=== PATIENT | female | born 1955 | race Caucasian/White ===

== ENCOUNTER 2021-02-03 22:54 | Observation (INO) | payer OTHER ==
--- OUTSIDE RECORDS SUMMARY | 2021-02-03 22:58 | XMS REPORT | Continuity of Care Document ---
:1955 Author Organization [facility] t Address [address] [place] [address] Care Team Providers Name Role Phone MEHUL Primary Care Physician Unavailable SYSTEM, NOT IN Attending Clinician Unavailable Dontae Goel MD Attending Clinician DONTAE GOEL Attending Clinician Unavailable MEHUL Attending Clinician Unavailable Mehul VALDOVINOS Attending Clinician Black GORDILLO Attending Clinician JUDY Attending Clinician Unavailable Judy VALDOVINOS Attending Clinician Alden Moore MD Attending Clinician Suzi REYNOSO Attending Clinician Unavailable Denise TOLEDO Attending Clinician DENISE Attending Clinician Unavailable Fabian Enriquez MA Attending Clinician Piyush TOLEDO Attending Clinician Danial VALDOVINOS Attending Clinician DANIAL Attending Clinician Unavailable Kamran PAULINO Attending Clinician Alden MOORE Attending Clinician Unavailable Angel Fernandez Attending Clinician Unavailable Lab, Fam Pob I Attending Clinician Unavailable Payers Payer Name Policy Type Policy Effective Date Expiration Date Sour ce Number AETNA MEDICAREAETNA [id number] 2019 MD Regan MEDICARE 00:00:00 [id number]/ 2020-PresentMedicar e Problems Condition Condition Condition Status Onset Resolution Last Treating Co mments Source Name Details Category Date Date Treatment Clinician Date Severe Severe Disease Active protein-ca protein-ca 5-03 Danii viear whit sherman 00:00: n malnutriti malnutriti 00 on on Lung mass Lung mass Disease Active 4-06 Anderso 00:00: n 00 Acute deep Acute deep Disease Resolve 2021-01-18 2021-01-19 venous venous d 01-18 00:00:00 00:47:20 Alexis o thrombosis thrombosis 00:00: n of of 00 axillary axillary vein vein Allergies, Adverse Reactions, Alerts This patient has no known allergies or adverse reactions. Social History Social Habit Start Date Stop Date Quantity Comments Source History of tobacco Current every day MD Regan use smoker Sex Assigned At MD Espinoza on Exposure to Not sure MD Regan SARS-CoV-2 (event) Cigarettes smoked 2021-01-28 2021-01-28 MD Shakeel schwab current (pack per 00:00:00 00:00:00 day) - Reported Cigarette pack-years 2021-01-28 2021-01-28 MD Leigh lopez 00:00:00 00:00:00 Tobacco use and 2021-01-28 2021-01-28 Never used MD Espinoza on exposure 00:00:00 00:00:00 Alcohol intake 2021-01-28 2021-01-28 Current drinker MD Danii apple 00:00:00 00:00:00 of alcohol (finding) Tobacco Comment 2021-01-13 2021-01-13 In the past month MD Regan 00:00:00 00:00:00 she has been smoking 10 cpd Alcohol Comment 2021-01-13 2021-01-13 very rarely- once MD Regan 00:00:00 00:00:00 every few years Smoking Status Start Date Stop Date Source Current every day smoker 2021-01-28 00:00:00 MD Regan Medications Ordered Filled Start Stop Current Ordering Indication Dosage Frequency Signature Comments Components Source Medication Medication Date Date Medication? Clinician (SIG) Name Name NICORETTE 2 Yes Tobacco 2mg Chew and MD mg gum 01-17 dependence park 1 Robert so cinnamon 00:00: syndrome Piece (2 n surge 00 mg) by mouth every hour as needed for smoking cessation. nicotine, Yes Tobacco 2mg Dissolve 1 MD polacrilex, 4-26 dependence lozenge (2 Anderso (Nicorette) 00:00: syndrome mg) in the n 2 mg mini 00 mouth lozenge every hour as needed for smoking cessation. apixaban Yes Deep venous Take 2 MD (Eliquis 3-22 thrombosis tablets by Andgosia DVT-PE 00:00: mouth n Treat 30D 00 twice Start) 5 mg daily for (74 tabs) 7 days, tablet then take 1 tablet by mouth twice daily thereafter . HYDROcodone Yes 1{tbl} Take 1 MD -acetaminop 3-09 tablet by And gosia gallegos (NORCO) 00:00: mouth n 7.5 mg-325 00 every 6 mg per (six) tablet hours as needed for pain. rOPINIRole Yes 1mg Take 1 mg MD (REQUIP) 1 3-09 by mouth Robert so mg tablet 00:00: at n 00 bedtime. hydrOXYchlo Yes 200mg Take 200 M D roQUINE 2-22 mg by Anderso (PLAQUENIL) 00:00: mouth n 200 mg 00 twice tablet daily. amLODIPine Yes 2.5mg Take 2.5 MD (NORVASC) 1-12 mg by Anderso 2.5 mg 00:00: mouth n tablet 00 daily. Immunizations Ordered Immunization Filled Immunization Date Status Commen ts Source Name Name [employer] SARS-CoV-2 2020-10-27 Completed MD Shakeel schwab Vaccination 00:00:00 Vital Signs Vital Name Observation Time Observation Value Comments Source WEIGHT 2021-01-18 14:21:00 59.9 kg WEIGHT 2021-01-18 14:21:00 59.9 kg WEIGHT 2021-01-05 09:16:00 60.2 kg WEIGHT 2021-01-05 09:16:00 60.2 kg HEIGHT 2020-12-13 14:22:00 175.3 cm WEIGHT 2020-12-13 14:22:00 62.7 kg HEIGHT 2020-12-13 14:22:00 175.3 cm WEIGHT 2020-12-13 14:22:00 62.7 kg Systolic blood pressure 2021-01-18 19:24:58 144 mm[Hg] MD Regan Diastolic blood pressure 2021-01-18 19:24:58 74 mm[Hg] MD Regan Heart rate 2021-01-18 19:24:58 91 /min MD Robert barlow Body temperature 2021-01-18 19:24:58 36.72 Ashley MD Leigh lopez Respiratory rate 2021-01-18 19:24:58 18 /min MD Leigh lopez Oxygen saturation in 2021-01-18 19:24:58 95 /min MD Regan Arterial blood by Pulse oximetry Body weight 2021-01-18 19:21:00 59.9 kg MD Robert barlow BMI 2021-01-18 19:21:00 20.48 kg/m2 MD Robert barlow Body height 2020-12-30 12:37:00 171 cm MD Robert barlow Procedures Procedure Date / Time Performed Performing Clinician Sourc e AP IHC PD-L1 2021-01-10 15:19:38 Maria Ines Walker MD AP FISH ALK 2021-01-10 15:19:38 Maria Ines Walker MD AP FISH CMET 2021-01-10 15:19:38 Maria Ines Walker MD AP FISH RET 2021-01-10 15:19:38 Maria Ines Walker MD AP FISH ROS1 2021-01-10 15:19:38 Maria Ines Walker MD HP CYTOGENETICS BLOOD 2021-01-06 22:43:00 Maria Ines Walker MD And erson COLLECTION US HEAD NECK SOFT TISSUE 2021-01-06 20:17:30 Maria Ines Walker MD US BIOPSY LYMPH NODE 2021-01-06 20:17:30 Maria Ines Walker MD Shakeel rson US GUIDED NEEDLE PLACEMENT 2021-01-06 20:17:30 Maria Ines Walker PATHOLOGY BIOPSY 2021-01-06 18:44:00 Maria Ines Walker MD INTERPRETATION PATHOLOGY BIOPSY 2021-01-06 18:42:00 Maria Ines Walker MD INTERPRETATION LB BRAF MUTATION ANALYSIS 2021-01-05 16:20:00 Maria Ines Walker MD (V600E/V600K) WITH INTERPRETATION AND REPORT LB EGFR SENSITIZING MUTATION 2021-01-05 16:20:00 Maria Ines Walker MD ANALYSIS WITH INTERPRETATION AND REPORT LB EGFR MUTATION ANALYSIS 2021-01-05 16:20:00 Maria Ines Walker MD (T790M, C797S) WITH INTERPRETATION AND REPORT LB EML4/ALK FUSION ANALYSIS 2021-01-05 16:20:00 Maria Ines Walker MD WITH INTERPRETATION AND REPORT LB ERBB2 FULL GENE MUTATION 2021-01-05 16:20:00 Maria Ines Walker MD ANALYSIS WITH INTERPRETATION AND REPORT LB MET FULL GENE MUTATION 2021-01-05 16:20:00 Maria Ines Walker MD ANALYSIS WITH INTERPRETATION AND REPORT LB RET FUSION ANALYSIS WITH 2021-01-05 16:20:00 Maria Ines Walker MD INTERPRETATION AND REPORT LB ROS1 FUSION ANALYSIS WITH 2021-01-05 16:20:00 Maria Ines Walker MD INTERPRETATION AND REPORT LB LIQUID BIOPSY PANEL V1 2021-01-05 16:20:00 Maria Ines Walker MD FINAL REPORT MRI BRAIN W WO CONTRAST 2020-12-30 15:21:00 Maria Ines Walker MD PETCT CONTRAST ENHANCED 2020-12-30 14:19:33 Maria Ines Walker MD INITIAL TREATMENT STRATEGY COMPLETE BLOOD COUNT W/ 2020-12-30 11:52:00 Maria Ines Walker MD DIFFERENTIAL COMPREHENSIVE METABOLIC PANEL 2020-12-30 11:52:00 Maria Ines Walker MD THYROID STIMULATING HORMONE 2020-12-30 11:52:00 Maria Ines Walker MD FREE THYROXINE 2020-12-30 11:52:00 Maria Ines Walker MD LIPASE LEVEL 2020-12-30 11:52:00 Maria Ines Walker MD AMYLASE LEVEL 2020-12-30 11:52:00 Maria Ines Walker MD MAGNESIUM LEVEL 2020-12-30 11:52:00 Maria Ines Walker MD PHOSPHORUS LEVEL 2020-12-30 11:52:00 Maria Ines Walker MD MD NGS BLOOD CONTROL 2020-12-30 11:52:00 Maria Ines Walker MD rson Results CBC 2020-12-30 11:52:00 Maria Ines Walker MD MANUAL DIFFERENTIAL 2020-12-30 11:52:00 Maria Ines Walker MD GLUCOSE LEVEL 2020-12-30 11:52:00 Maria Ines Walker MD BLOOD UREA NITROGEN 2020-12-30 11:52:00 Maria Ines Walker MD ELECTROLYTE PANEL 2020-12-30 11:52:00 Maria Ines Walker MD Alexiso n SERUM CREATININE 2020-12-30 11:52:00 Maria Ines Walker MD .GLOMERULAR FILTRATION RATE 2020-12-30 11:52:00 Maria Ines Walker MD CALCIUM LEVEL TOTAL 2020-12-30 11:52:00 Maria Ines Walker MD son ALBUMIN LEVEL 2020-12-30 11:52:00 Maria Ines Walker MD ALKALINE PHOSPHATASE 2020-12-30 11:52:00 Maria Ines Walkere rson ALANINE AMINOTRANSFERASE 2020-12-30 11:52:00 Maria Ines Walker MD ASPARTATE AMINOTRANSFERASE 2020-12-30 11:52:00 Maria Ines Walker TOTAL PROTEIN 2020-12-30 11:52:00 Maria Ines Walker MD FRACTIONATED BILIRUBIN 2020-12-30 11:52:00 Maria Ines Walker MD derson CT CHEST PULMONARY EMBOLISM W 2020-12-13 21:43:00 Jessica Barrow MD CONTRAST US ARM VENOUS DOPPLER LEFT 2020-12-13 20:12:45 Ravi Barrow RESPIRATORY VIRAL PANEL + 2020-12-13 20:05:00 Louise Willingham MD COVID-19, NASOPHARYNGEAL SWAB COMPLETE BLOOD COUNT W/ 2020-12-13 20:05:00 Ravi Barrow MD nderson DIFFERENTIAL COMPREHENSIVE METABOLIC PANEL 2020-12-13 20:05:00 Jessica Barrow MD MAGNESIUM LEVEL 2020-12-13 20:05:00 Ravi Barrow MD PHOSPHORUS LEVEL 2020-12-13 20:05:00 Ravi Barrow MD CARDIAC PANEL 2020-12-13 20:05:00 Ravi Barrow MD NT PRO BNP 2020-12-13 20:05:00 Ravi Barrow MD PROTHROMBIN TIME 2020-12-13 20:05:00 Ravi Barrow MD PARTIAL THROMBOPLASTIN TIME 2020-12-13 20:05:00 Ravi Barrow MD Results CBC 2020-12-13 20:05:00 Ravi Barrow MD MANUAL DIFFERENTIAL 2020-12-13 20:05:00 Ravi Barrow MD GLUCOSE LEVEL 2020-12-13 20:05:00 Ravi Barrow MD BLOOD UREA NITROGEN 2020-12-13 20:05:00 Ravi Barrow MD ELECTROLYTE PANEL 2020-12-13 20:05:00 Ravi Barrow MD SERUM CREATININE 2020-12-13 20:05:00 Ravi Barrow MD .GLOMERULAR FILTRATION RATE 2020-12-13 20:05:00 Ravi Barrow MD CALCIUM LEVEL TOTAL 2020-12-13 20:05:00 Ravi Barrow MD ALBUMIN LEVEL 2020-12-13 20:05:00 Ravi Barrow MD ALKALINE PHOSPHATASE 2020-12-13 20:05:00 Ravi Barrow MD ALANINE AMINOTRANSFERASE 2020-12-13 20:05:00 Ravi Barrow MD ASPARTATE AMINOTRANSFERASE 2020-12-13 20:05:00 Ravi Barrow TOTAL PROTEIN 2020-12-13 20:05:00 Ravi Barrow MD FRACTIONATED BILIRUBIN 2020-12-13 20:05:00 Ravi Barrow MD EKG, 12-LEAD (PORTABLE) 2020-12-13 00:00:00 Ravi Barrow MD nderson OSI CT CHEST 2020-11-30 22:36:23 Ravi Barrow MD OSI CERVICAL SPINE 2020-11-16 22:36:35 Ravi Barrow MD on OSI MRI SPINE CERVICAL 2020-11-16 22:36:11 Ravi Barrow MD OSI MRI UPPER EXT 2020-11-16 22:36:01 Ravi Barrow MD OSI SHOULDER 2020-11-16 22:35:52 Ravi Barrow MD Plan of Care Planned Activity Planned Date Details Comments Source Future Scheduled Test 2020-11-17 00:00:00 COVID-19 Vaccination (2 MD Regan - Pfizer 2-dose series) [code = COVID-19 Vaccination (2 - Pfizer 2-dose series)] Encounters Start End Encounter Admission Attending Care Care Encounter Source Date/Time Date/Time Type Type Clinicians Facility Department ID 2020-12-10 Outpatient ENRIQUE, MDA MDA [id number] 11:08:07 PROVIDER Alexis holland 2021-02-01 2021-02-01 Outpatient OLI GOEL MDA MDA [id number] 17:26:00 17:26:00 NAT holland 2021-01-28 2021-01-28 Outpatient JANETTE SANTIZO MDA MDA [id number] 13:28:59 13:28:59 Alexis o skyler 2021-01-24 2021-01-24 Outpatient JANETTE SANTIZO MDA MDA [id number] 11:30:49 15:04:41 Alexis o skyler 2021-01-21 2021-01-21 Outpatient JANETTE SANTIZO MDA MDA [id number] 11:12:41 11:12:41 Alexis o skyler 2021-01-18 2021-01-18 Outpatient NELY HOBSON MDA MDA [id number] 14:20:33 15:53:49 Alexis o skyler 2021-01-13 2021-01-13 Outpatient OLI REYNOSO, MDA MDA [id number] 12:08:47 12:08:47 CARMENCITA holland 2021-01-13 2021-01-13 Outpatient JANETTE SANTIZO MDA MDA [id number] 12:08:39 12:08:39 Alexis o skyler 2021-01-06 2021-01-06 Outpatient OLI WALKER, MDA MDA [id number] 12:33:42 12:33:42 MARIA INES Espinoza o skyler 2021-01-05 2021-01-05 Outpatient OLI WALKER, MDA MDA [id number] 10:45:00 23:59:00 MARIA INES Espinoza o skyler 2021-01-05 2021-01-05 Outpatient JANETTE SANTIZO MDA MDA [id number] 09:06:20 10:58:21 Alexis o skyler 2020-12-30 2020-12-30 Outpatient OLI WALKER, MDA MDA [id number] 06:54:53 06:54:53 MARIA INES Espinoza o skyler 2020-12-30 2020-12-30 Outpatient EL DENISE, MDA MDA [id number] 06:54:10 06:54:10 MARIA INES Zhuers o n 2020-12-30 2020-12-30 Outpatient OLI WALKER MDA MDA [id number] 06:40:10 06:45:26 MARIA INES Zhuers o n 2020-12-24 2020-12-24 Outpatient NELY HOBSON MDA MDA [id number] 14:58:40 14:58:46 Alexis o n 2020-12-20 2020-12-20 Outpatient OLI BARROW, MDA MDA [id number] MD 14:41:21 14:41:21 RAVI Alexis o n 2020-12-20 2020-12-20 Outpatient OLI BARROW MDA MDA [id number] MD 14:41:20 14:41:20 RAVI Alexis o n 2020-12-20 2020-12-20 Outpatient OLI BARROW MDA MDA [id number] MD 14:41:18 14:41:18 RAVI Alexis o n 2020-12-20 2020-12-20 Outpatient OLI BARROW MDA MDA [id number] MD 14:41:17 14:41:17 RAVI Alexis o n 2020-12-20 2020-12-20 Outpatient OLI BARROW MDA MDA [id number] 14:41:16 14:41:16 RAVI Alexis o n 2020-12-13 2020-12-13 Emergency UR MOORE, MDA Emergency [id number] 14:24:00 20:03:00 AUGUSTINE Espinoza o n 2020-11-26 2020-11-26 Laboratory Lab, Adc [facility] [id number] 11:19:36 11:39:36 Only [facility] [id number] [place] [id number] Professio [id number] nal 044 Office Building One Results Test Description Test Time Test Comments Results Result Comments Source Cytogenetics Specimen Collection -FFPE 2021-02-01 22:45:31 Test Item Value Reference Range Interpretation Comme nts Beckie Faulkner Link (test code = 59744) [id number] Collection date/time has been modified to: SANDIP 17:43:00. Previous collec tion date/time: 17:43 :00. Cytogenetics (Received) (test code = Yes Collection date/time has been 8304) modified to: 17:43:00. Previous colle tion date/time: 17:43 :00. MD ReganPathology Biopsy [id number] 13:29:00 Test Item Value Reference Range Interpretation Comments Addendum 1 (test code = h4csuZDtLEUieMG4WcM 37) jMYWea9wnc5HbuFNajB YdUFhpqITrdjOijd46d TU9uA40EJ2iIZUzQeX4 FXXeatH9Iur4KEUfUFJ ilJAmA589r9wao2fgju YfbJQ6zCjcIPKcOLQtC WluXGJcZnMyMCBUaGlz IGFkZGVuZHVtIGlzIGN dNLF7OAZxaE0vxiCec5 V2NZWjWWs8bN2lRXakq Q6zcU8oyUllgK9dwQHh aWNhbCBzdHVkaWVzLlx wYXJccGFyZFxiMFxwYX OuES5zwM9ecFxwfA8bk GVtaWNhbCBhbmFseXNp acPfh8AzVGLcUIUpXJq nYNInv95gTUOtDnXmAB Jmt95puVWjTTLzhZ64r yZkUG8zfyVum0JiJUR2 IDqqhC4mJWouHFDhTIb cYRNaYXQ6aF0zkyPsPF minmIgaqW7sJiaEEBjE WNpbWVuLiAgXHBhclxw YXJkXHBhclxwYXIgQVc aWL3gkVIuNJVmGFktAw AyMVxwYXJccHJvdGVjd JwuZicbhPW9URubIfdr cS1phLPFCWTXRaqIFew htmBkDP9DJS1ZCkHMDN 92HNI5OGoVL3r7OCh6a HF0gV82EFAeNVZmdYVe QNepV088FWr7BpBHNHv mPoywmVM2XFajKvhvyB 5zdCBIWVBFUkxJTksgb fHiTH6FEG0SCR9FfOhx xYX1St6LeUS5rOenhNl 0n4lhlBKoy8t3KCpyBM X3tJfvjCBaaorpyeNdA HBhcn0= Diagnosis (test code = 34) h1sipBJpNQAnnJV2JgV bNLTci8flu2NvmCMnpW EkGRiykALscePjwx91b XO9lW98FQ6uVMBaYlG2 DHHwxyJ3Urs3LNFvVFU iaRKkO260j3isy0ktwz TjrMX2dIxbNMAvIGRmG WluXGZzMjAgQTogTGVm dCBpbmZlcmlvciBuZWN pYS8uOPPuWLUzYJL4II KcKMM0IJQeTJRobDq1D TEejapfaDxcBAzihR40 MeRuTI9OQtjJHDBQItO FUkVOVElBVEVEIENBUk FXEw2TOBMRWoBTPEYSS 6KKDGOTB9UNYFbeSkIM U9LzCUWFAPDJMCFHNmK DDw8ZIXzSWlbmWGLYED FIWKFbr2LtJRIoyZ9tw nQpXHBhclxsaTBcbGlu MFxwYXIgQjogUmlnaHQ sq6FoztKhpWZ1gVP3yZ VuQC0xWUWpYFNjJDQ0R QQiUQF9JYNqSLIczWe5 XHBhclxsaTcyMFxsaW4 2DkPmQY7DSjuTOEYJVc ZFUkVOVElBVEVEIENBU nUFBz2EXZCFPaJXTBML TVIyYN6POZMPTcPMKHB jUVgRA4XRZSGPQRGPDs UCWUIYQ6RMP9aKPHUHJ 00gTFVORyBQUklNQVJZ CYhjWADvA94hrDIbcJd ccGFyXHBhcmRccGFyIG pul9qlBIF3 Comment (test code = 9835) h8afqNAfYQOgkNU3TbK fSITid7dnu0LgvOCcaJ QlGEaaxLUaqdHjbe91x GB7kL74PQ4wUQMsRkR1 SORtsfZ9Cyz6DOTsLQL dkIPqF821v4liq0xjpi ZubXF5rTeiNLGqJIUfG CkkZCMzRgNsQmtmaY3f lM6ctSkeoW3okBSkjOO 6okrnyNHzh6TkK7IofU VaILOdRNVaCtP5x6Vuw DJxl3DbzOa6IBIvh4Sm ZFMVPAApYO8fJUPdw5P vv8U3DE6gHOPucIpgIQ DfCDAto5KndIb8BGVyn 2VgVNUsObAZqI5gftQe ZWxscyBhcmUgbmVnYXR bhiZwHe1yKASDZPczLR 63FXKdtRwdfAndGO7ld oIhn9aeA4imUGPwKDSw tN82uj6dsRV1r0SbKV4 tU8ViARSvKWG2guGrFS Kaja8rNSNilm6fHWIzV WxsIGNlbGwgIGNhcmNp ln0vNASrTxPmhT6eGM5 viCbqzyrdtvHeqB4lui DxzRvlTFdfjDKuKDi9r mcgbWFzcyBpcyBwcmVz MN83RpEAo607lA09EGC dU9bqvxdrVFqpUS1kMH MqYAwviS3elJDdE69tl vWlQZQea90qAXgaDFTa cXVpcmVkLlxwYXJ9 Gross Description (test o5disIBcCVOixGUGLCM code = [id number]) wMVxhbnNpXHNwbHRwZ3 QwqidiRGitCS7aWD7mk UnywOPugGKoHL0KFABl ZmYxXHBhcGVydzEyMjQ rCDWikORwvVL3ZPZvKL 1hcmdsMTgwMFxtYXJnc mY2JHGswZCgB9FyBAMv RF6lugypQHB8AJsxfY7 qiyFPXlehMa9ddHGdyW tcZjFcZmNoYXJzZXQwX TAnbSsyDGWbHUt1wF7C BydhNGC1EVYSGzfbXPR sWO8Ay6whQEXcyGXxRS B7JFgkxGWyOFUsYHKzD Bd8YOWoXDhpyDShEI9d nTreVguzfRfzj9DswGX cXGlkIDUxMDAyIFxcZG QiPG9VWyGsIPQsFdKvA NclGBf0WEy4QC3GQjZl GIXpVJp7TKDhJRLySQs 6QPguEO4JCEiiBvgdTH XnUYE7IJR4PoRdOKFkQ iBcXGYgQXJpYWwgXFxm cyAxMCBcXGZiIFxcZmw gOZksZ13olZydhA3bSt ybuwObILT9TGHqlcYKP lxwbGFpblxlcGljTmVz dERvYzEgDQpcbHRycGF yXGxpbjBccmluMCANCl xsdHJjaFxiXGZzMjAgT NkwaOyoto7tRIfiMVgm bGVmdCBpbmZlcmlvciw gbmVjaywgbGVmdCBpbm UzredyvwKbLIIfHY7vT IPaVZVmICS7GJYwVMF2 IDEuNSBjbTpcYjAgLCB BpQg6kMIzJIvwAbWdQ8 3ufpClJAKfa1QrmlFfL iBjeWxpbmRyaWNhbCB3 vRx5CC94GX7irEuxf8T wIRlsLwTpKM46WCBcKN lsBXuptdu6gWH6JENmJ SBjbSBpbiBkaWFtZXRl nmkzEXWnkPmrSXv1QQL 8Js1jhRAdWASwcfQRDA 2oWShXKKqvjXmwcU8hL HDtT95qg6EOt5AbWXMf YLiiy4ghnAcub8PzgIE uZFxwYXJccGFyZFxzbC 0bNbYse0usqDc3JOkpm vC5CIFiop3EIqkoPljv mZcbt4HddZXjEShvVSE bCLFcQKteNZKwRK2RHi QwZZNtVuZkQSnvPId0L Sw7CL2LWsLpEHIaRQa8 GCLkZzExYBj4DOpsLF3 OGGobHctbHMo8VTQ2QG A3DlHxTDWuMwBkDFNmR XJpYWwgXFxmcyAxMCBc AKZrSPjqQfpoVLetO81 tLoegnbFtGUL8OYCwqm ANClxwbGFpblxlcGljT mVzdERvYzEgDQpcbHRy cGFyXGxpbjBccmluMCA NClxsdHJjaFxiXGZzMj DqILesgYiesw6gNFnsC DpimtbftONsOGX0mZVg I1sgeyoefXymoqrjzlp gpAKsb9YfiySjlKC2lJ O4cNSlWN5aXAHpCWMuZ KA9MXHwHHG0FZAtWNPp zUP4ZYYaQRZqUNEmmmP bOV2fWOY5pNpfGRQqD9 SiAKjtlGAgOLQkluN4r XNzdWUgKDAuMSBhbmQg LQ86XZRqBCyzPLpnixc 2jAE2HAHyYWDnsTHisb BkaWFtZXRlciksIGVud ErmWZg4ZOX8Dh9lyJIp HNEscpRADN1mXWsZWGf kuVruyT0oMCFfK40qz8 YGc4MqZDVwJRvqu6bta Xxes5FokVPaYEndRSSs yJBoLXmdmR4ePuMab7v djRn3NCerwlA2CSOttb 1DEcrfkJ7hBzFjh5pns Hs6NHQAJqgwynZ9f5xc iSchx6RbgKGrQG7MYo4 = [employer](s) (test h2bozICqWFQmtJQ5DqA code = 9841) fKLThc8otz5ZrwPEulL NtQCvjdYTfjcNwcw15u XU3pY06ZK4zADQpByP5 VCHmgzK0Azd1IXZlJNY iwQMeG413k6alq1etdh AgeCD9eVqnDBFsRCChT ToiONAxDhHiYTVcj4Y4 IEExXHBhcn0= Disclaimer (test code = e1mdyLFuAIDgeAKtPlP 9844) sWPSgEOAne0wvUWOyrY FuZzEwMzNcZnRuYmpcd WFhYWYqAjKzi8laz341 mXXqd4kiGIUaQrD5tND tSTEizHZxQ205HWFzKD ady9gsw0NuXERjjYQoa 0N9NDVEcafjqIu9iXib G00zd7O9KvssL2qcBJN hKLHyK9GwOT7jETTvSe j1DTE2PYA1PGYpQBZbS 3WvHB2cETSjjRSvOPm9 b2zqoEmuHVTxKIW0x3a iJZiobeKfCA9jet2xzW r5r7kvetOcYECrBGMmv YKPRTEeJ2UbcIflLq3h kCx7sTidZgxaKED0Njb 0WQ7szw77ezo5zWhlNL JkiwfgVjQ7CTlkSZJvi ibqICk7GYdnROSivIV5 RAVszVSuM6XhWGCgWP8 xjzw5ZIK5DScrPNObGz B4HAAiaJDwXGSwyUdaD Oyam518USN9IlUmGS6n I8Rkj2I4hH7weAXrSPG wbDZcYkJgDCDwic0rdL PfFVjui3CbAEK6pvI6t VAfqILnKNGhNK19Chlr j0DgSiomGGP1SMLzhnD ya4Ujv6stIdUmcfUfD7 bwW4YjSNFvNWFnSVWrM rXnimSjl3Ukf1ZiaCBd oGd7s0nyCFUgDQSvyRn wh8coJSZ3MXFwU7Z8zZ Xfx9frEPjgSCMwaQX8i sR6SFDqyAOsI5TsoQ2p DYKlRJ2zqaj1v5onMLV 5ZKsoEQJpYjC1fuK5DH BcaGVhZGVyeTcyMFxmb 021AFD7ZqPuPLHzm1Xe Z0BmaJxcV60pySnlM73 qLEMogFzzvA6eoBxymE 5cZjBcZnMyNFxxbFxwb EBoedcmOTmeesJ1JMcb hemoHRKjWBskA0uoKjX wEAYwjQrdLQwan1JkFN HuVZYbWkbtxyR0ZSKNh 75jQMXnf4CbZLCxhG0h uHSkIJkxlpFjzPF2ZEy hdmUgYmVlbiBkZXZlbG 6xPCMeME5zXDQozaJlt s9wqaHhOXUqHDVbK9Ac cmlzdGljcyBkZXRlcm1 qzaHqCKJ4VOLFTN3KCE AaICRas44cRUSepGwuu C9kmXWwheFiZNFbf9Ne gC0hyQNRKBZzE2kcVI3 gWFzvn5EguFLbyIDrzY B3WAVbx4DwBhMkztTmn YJmmXRhF5CfeRajJ0fb AXIxMMJqtaLuyFDxo1N vLSWqjTK6ePCdOA2SGg WCz47dQDPpWIWEepVzF BSxyXxfxSC6xjC2rF4j LiBJZiBhcHBsaWNhYmx bGZUyl533xy8zunP1OJ YaTZNhfsebd5RkOGXdS XGyvC31VYNcTWVugb9b vazhnOYhocFtR2Koxdb 1aH8oCDCjSOcdOIPaAU ZzMjJcbGFuZzEwMzNca GljaFxmMVxkYmNoXGYx VWumS7myLhOiIoFdUdo wYXJ9 MD [facility] Guided Needle [id number] 21:00:07 1. Successful ultrasound guided core needle biopsy of a right supraclavicular lymph node.2. Successful ultrasound guided core needle biopsy of a left supraclavicular lymph node. Interface, RadiologyResults In - 01/06/2021 4:02 PM CDTFULL RESULT:Examination: ULTRASOUND SOFT TISSUE HEAD&NECK, ULTRASOUND SOFT TISSUE HEAD&NECK, ULTRASOUND SOFT TISSUE HEAD&NECK, ULTRASOUND SOFT TISSUE HEAD &NECK on 01/06/2021 2:30 PMClinical History: Lung cancer.Indication: Lung cancer bilateral neck masses. Tissue needed for molecular testing.Comparison: PET/CT 12/30/20.Technique: Ultrasound soft tissues of the head and neck were performed. Ultrasound-guided core needle biopsy of a right lymph node was performed. Ultrasound-guided core needle biopsy of a left lymph node was also performed.Findings: Within the right neck, there are multiple metastatic lymph nodes identified. A right inferior neck node measuring up to 3.4 x 3.0 x 2.0 cm was targeted for core needle biopsy.In the left neck, there are abnormal lymph nodes, in keeping with metastasis. The left supraclavicular lymph node measuring up to2.5 x 1.5 x 1.5 cm was targeted for ultrasound-guided core needle biopsy.Ultrasound-guided core needle biopsy:Risks and benefits of procedure were explained to patient. Informed consent was obtained. The right neck was cleansed with alcohol. 1% Xylocaine was used for local anesthesia. Ultrasound guided core needle biopsy of the right inferior neck node was performed using a 20-gauge needle under sonographic guidance. 2 passes were made.Ultrasound guided core needle biopsy of the left inferior neck node was performed using a 20-gauge needle under sonographic guidance. 3 passes were made.IMPRESSION:1. Successful ultrasound guided core needle biopsy of a right supraclavicular lymph node.2. Successful ultrasound guided core needle biopsy of a left supraclavicular lymph node.MD [facility] HEAD NECK SOFT [id number] 21:00:07 1. Successful ultrasound guided core needle biopsy of a right supraclavicular lymph node.2. Successful ultrasound guided core needle biopsy of a left supraclavicular lymph node. Interface, RadiologyResults In - 01/06/2021 4:02 PM CDTFULL RESULT:Examination: ULTRASOUND SOFT TISSUE HEAD&NECK, ULTRASOUND SOFT TISSUE HEAD&NECK, ULTRASOUND SOFT TISSUE HEAD&NECK, ULTRASOUND SOFT TISSUE HEAD &NECK on 01/06/2021 2:30 PMClinical History: Lung cancer.Indication: Lung cancer bilateral neck masses. Tissue needed for molecular testing.Comparison: PET/CT 12/30/20.Technique: Ultrasound soft tissues of the head and neck were performed. Ultrasound-guided core needle biopsy of a right lymph node was performed. Ultrasound-guided core needle biopsy of a left lymph node was also performed.Findings: Within the right neck, there are multiple metastatic lymph nodes identified. A right inferior neck node measuring up to 3.4 x 3.0 x 2.0 cm was targeted for core needle biopsy.In the left neck, there are abnormal lymph nodes, in keeping with metastasis. The left supraclavicular lymph node measuring up to2.5 x 1.5 x 1.5 cm was targeted for ultrasound-guided core needle biopsy.Ultrasound-guided core needle biopsy:Risks and benefits of procedure were explained to patient. Informed consent was obtained. The right neck was cleansed with alcohol. 1% Xylocaine was used for local anesthesia. Ultrasound guided core needle biopsy of the right inferior neck node was performed using a 20-gauge needle under sonographic guidance. 2 passes were made.Ultrasound guided core needle biopsy of the left inferior neck node was performed using a 20-gauge needle under sonographic guidance. 3 passes were made.IMPRESSION:1. Successful ultrasound guided core needle biopsy of a right supraclavicular lymph node.2. Successful ultrasound guided core needle biopsy of a left supraclavicular lymph node.MD [facility] Guided Lymph Node [id number] 21:00:07 1. Successful ultrasound guided core needle biopsy of a right supraclavicular lymph node.2. Successful ultrasound guided core needle biopsy of a left supraclavicular lymph node. Interface, RadiologyResults In - 01/06/2021 4:02 PM CDTFULL RESULT:Examination: ULTRASOUND SOFT TISSUE HEAD&NECK, ULTRASOUND SOFT TISSUE HEAD&NECK, ULTRASOUND SOFT TISSUE HEAD&NECK, ULTRASOUND SOFT TISSUE HEAD &NECK on 01/06/2021 2:30 PMClinical History: Lung cancer.Indication: Lung cancer bilateral neck masses. Tissue needed for molecular testing.Comparison: PET/CT 12/30/20.Technique: Ultrasound soft tissues of the head and neck were performed. Ultrasound-guided core needle biopsy of a right lymph node was performed. Ultrasound-guided core needle biopsy of a left lymph node was also performed.Findings: Within the right neck, there are multiple metastatic lymph nodes identified. A right inferior neck node measuring up to 3.4 x 3.0 x 2.0 cm was targeted for core needle biopsy.In the left neck, there are abnormal lymph nodes, in keeping with metastasis. The left supraclavicular lymph node measuring up to2.5 x 1.5 x 1.5 cm was targeted for ultrasound-guided core needle biopsy.Ultrasound-guided core needle biopsy:Risks and benefits of procedure were explained to patient. Informed consent was obtained. The right neck was cleansed with alcohol. 1% Xylocaine was used for local anesthesia. Ultrasound guided core needle biopsy of the right inferior neck node was performed using a 20-gauge needle under sonographic guidance. 2 passes were made.Ultrasound guided core needle biopsy of the left inferior neck node was performed using a 20-gauge needle under sonographic guidance. 3 passes were made.IMPRESSION:1. Successful ultrasound guided core needle biopsy of a right supraclavicular lymph node.2. Successful ultrasound guided core needle biopsy of a left supraclavicular lymph node.MD Dalton ROS1 Fusion Analysis with Interpretation and Report - Liquid Biopsy genotyping when no tumor tissue is [id number] 19:06:24 Test Item Value Reference Range Interpretation Comments Molecular Diagnostics (Received) (test Yes code = 8400) MD Dalton RET Fusion Analysis with Interpretation and Report - Liquid Biopsy genotyping when no tumor tissue is [id number] 19:06:23 Test Item Value Reference Range Interpretation Comments Molecular Diagnostics (Received) (test Yes code = 8400) MD Dalton MET Mutation Analysis with Interpretation and Report - Liquid Biopsy genotyping when no tumor tissue is [id number] 19:06:22 Test Item Value Reference Range Interpretation Comments Molecular Diagnostics (Received) (test Yes code = 8400) MD Dalton ERBB2 Full Gene Mutation Analysis with Interpretation and Report - Liquid Biopsy genotyping when no tumor tissue is [id number] 19:06:21 Test Item Value Reference Range Interpretation Comments Molecular Diagnostics (Received) (test Yes code = 8400) MD Dalton EML4/ALK Fusion Analysis with Interpretation and Report - Liquid Biopsy genotyping when no tumor tissue is [id number] 19:06:20 Test Item Value Reference Range Interpretation Comments Molecular Diagnostics (Received) (test Yes code = 8400) MD Dalton EGFR Mutation Analysis (T790M, C797S) with Interpretation and Report - Clinical suspicion for treatment [id number] 19:06:19 Test Item Value Reference Range Interpretation Comments Molecular Diagnostics (Received) (test Yes code = 8400) MD Dalton EGFR Sensitizing Mutation Analysis with Interpretation and Report - Liquid Biopsy genotyping whenno tumor tissue is [id number] 19:06:18 Test Item Value Reference Range Interpretation Comments Molecular Diagnostics (Received) (test Yes code = 8400) MD Dalton BRAF Mutation Analysis with Interpretation and Report - Liquid Biopsy genotyping when no tumor tissue is [id number] 19:06:17 Test Item Value Reference Range Interpretation Comments Molecular Diagnostics (Received) (test Yes code = 8400) MD ReganPETCNona Contrast Enhanced Initial Treatment [id number] 16:26:47 1. Hypermetabolic primary lung cancer in the left upper lobe with extensive metastatic disease involving the bilateral lower cervical, supraclavicular, mediastinal, hilar and axillary lymph nodes. 2. F-18 FDG avid paraesophageal, bozena hepatis and left gastric lymph nodes are suspicious for metastases. 3. Mildly F-18 FDG avid subsolid right apical pulmonary nodule may represent a second primary lungcancer. I personally reviewed these image(s) along with the resident's/fellow's interpretations, certify that if a procedure was performed I was physically present, and agree with the final report.Interface, Radiology Results In - 12/30/2020 11:29 AM CDTFULL RESULT:Examination: Contrast-Enhanced F-18 FDG PET/CT, 12/30/2020 9:19 AMClinical History: Recently diagnosed left upper lobe lung cancer.Indication: Initial staging for initial treatment plan.Comparison: CT chest 12/13/2020Technique: F-18 fluorodeoxyglucose (FDG) 11.3 mCi was administered intravenously via right forearm. To allow for distribution and uptake of radiotracer, the patient was asked to rest quietly for approximately 60-90 minutes. PET/CT imaging was performed from the vertex to midthighs. Serum blood glucose at the time of the injection was 71 mg/dL. CT scanning was done for attenuation correction, image registration, and diagnosis with scan parameters optimized to minimize radiation exposure to the patient. The CT portion ofthe examination was performed with intravenous contrast. SUV measurements are reported as maximum SUV based on body weight unless otherwise specified. Findings: Head and Neck: No definite suspicious F-18 FDG avid lesion within the brain parenchyma. The paranasal sinuses are well aerated.There is multifocal hypermetabolic bilateral lower cervical and supraclavicular lymphadenopathy, consistent with metastatic disease. A financial services sales representative left level 5 cervical lymph node measures 1.5 cm has a maximum SUV8.5 (image 68). A financial services sales representative right level 5 lymph node has a maximum SUV 5.9 (image 72). A conglomerate of hypermetabolic left supraclavicular lymph nodes measures approximately 2.3 x 2.2 cm with a maximum SUV 8.8 (image 75). A conglomerate of right supraclavicular lymph nodes measures approximately 2.9 x 2.9 cm with a maximum SUV 9.3 (image 78).Stable small filling defect in the left brachiocephal ic vein with irregular narrowing at the confluence of the left internal jugular vein and subclavian veins, unchanged from CT of 12/13/2020.Chest: Hypermetabolic mass with central cavitation in the left apex measures approximately 3.3 x 3.6 cm with maximum SUV 5.8 (image 92), not significantly changed from the chest CT of 12/13/2020. This mass is consistent with patient's known primary lung cancer. There is additional spiculated subsolid pulmonary nodule in the right apex measures approximately 1.6 x 1.1 cm with low-level F-18 FDG activity maximum SUV 1.4 (image 86). This may represent a small pulmonary adenocarcinoma. An additional 8 mm nodule in the right lung apex does not demonstrate significant F -18 FDG activity. Attention on follow-up imaging is recommended.There is multifocal mediastinal and bilateral hilar lymphadenopathy consistent with metastatic disease. [employer] conglomerate of subcarinal lymph nodes measures approximately 2.2 x 3.7 cm with maximum SUV 9.7 (image #118). A financial services sales representative conglomeration of right hilar lymph nodes measures approximately 5.1 x 2.9 cm with maximum SUV 13.8 (image #118). A left hilar lymph node measures 1.7 x 1.7 cm with a maximum SUV 9.3 (image 120).Bilateral F-18 FDG avid axillary lymphadenopathy consistent with metastatic disease. A financial services sales representative left axillary lymph node measures 0.8 cm short axis maximum SUV 3.0 (image 98). A financial services sales representative right axillary lymph node measures 0.8 cm short axis with a maximum SUV 2.4 (image 110).Bilateral breast implants. Small pericardial effusion. A trace right pleural effusion is noted.Abdomen and Pelvis: Po stsurgical changes in the stomach and gastroesophageal junction from prior surgery. There are hypermetabolic paraesophageal, left gastric and bozena hepatis lymph nodes suspicious for metastatic disease. A paraesophageal lymph node measures 2.3 cm in short axis with a maximum SUV of 7.8 (image 146). A bozena hepatis lymph node has a maximum SUV of 5.3 (161).No F-18 FDG avid lesions in the liver, spleen, pancreas, adrenal glands, or kidneys. Left renal cortical cyst. Physiologic activity within the gastrointestinal tract.Indeterminant mildly hypermetabolic bilateral inguinal lymph nodes. A financial services sales representative left inguinal lymph node has maximum SUV 3.4 (image 2:30).Musculoskeletal: No F-18 FDG avid osseous lesions.IMPRESSION:1. Hypermetabolic primary lung cancer in the left upper lobe with extensive metastatic disease involving the bilateral lower cervical, supraclavicular, mediastinal, hilar and axillary lymph nodes. 2. F-18 FDG avid paraesophageal, bozena hepatis and left gastric lymph nodes are susp icious for metastases.3. Mildly F-18 FDG avid subsolid right apical pulmonary nodule may represent asecond primary lung cancer.I personally reviewed these image(s) along with the resident's/fellow's interpretations, certify that if a procedure was performed I was physically present, and agree with the final report.[facility] with and without [id number] 15:27:20No evidence for intracranial metastases or acute intracranial pathology. Interface, Radiology Results In 12/30/2020 10:29 AM CDTFULL RESULT:EXAMINATION: MRI BRAIN W WO CONTRAST on 12/30/2020 10:21 AMHISTORY: Lung massINDICATION: Initial staging, rule out brain metsCOMPARISON: NoneTECHNIQUE: Multi-sequence MRI of the brain without and with intravenous contrast as per standard departmental protocol.FIND INGS:The ventricles are normal in size and within the midline. No restricted diffusion or foci of C6mnuljeiqpqtfad. No abnormal leptomeningeal or parenchymal enhancement. Intracranial vascular flow voids are maintained. The paranasal sinuses are clear. No suspicious osseous or orbital lesions.IMPRESSION:No evidence for intracranial metastases or acute intracranial pathology.MD Regan OSI Cervical [id number] 21:36:44Study acquired at another institution. For comparison only. No MD Regan originated interpretationrequested or available. MD Gallo CT [id number] 21:36:31Study acquired at another institution. For comparison only. No MD Regna originated interpretationrequested or available.MD Gallo MRI SPINE [id number] 21:36:19Study acquired at another institution. For comparison only. No MD Regan originated interpretationrequested or available.MD Gallo MRI Upper [id number] 21:36:07Study acquired at another institution. For comparison only. No MD Regan originated interpretationrequested or available.MD Gallo Shoulder 2020-12-20 21:35:57Study acquired at another institution. For comparison only. No MD Regan originated interpretationrequested or available.MD ReganCT Chest Pulmonary Embolism with [id number] 22:09:001. No pulmonary emboli. 2. New left axillary/subclavian thrombophlebitis with thrombus extending into the brachiocephalic vein. There is resulting edema in the left chest wall. The enlarged nodes in the low right axilla are probably secondary to venous obstruction. 3. Extensive bilateral mediastinal adenopathy and bilateral lower cervical adenopathy presumably representing tumor involvement. Thereis mass effect on the heart and right pulmonary artery and veins which may be reducing blood flow tothat side. 4. Cavitary left upper lobe mass concerning for primary lung cancer. Suspicious nodules are also seen at the right apex that could be synchronous tumor, metastases, or possibly infectious/inflammatory nodules. 5. Other small lung nodules are indeterminate. Interface, Radiology Results In - 12/13/2020 5:11 PM CDTFULL RESULT:Examination: CT CHEST PULMONARY EMBOLISM W CONTRAST, 12/13/2020 4:43 PMClinical History: Lung mass with new neck swelling.Indication: Pulmonary embolism is leading diagnosis, Chest pain/Shortness of BreathComparison: NoneTechnique: Spiral CT of the chest is performedusing intravenous contrast.Findings: Bilateral breast implants are present. There is of multilevel left axillary adenopathy with edema in the left axilla and chest wall. There is soft tissue thickeningaround the left subclavian/axillary vein, and there is a probable filling defect in the left brachiocephalic vein. There is irregular narrowing at the confluence of left internal jugular and subclavianveins. Bilateral lower cervical adenopathy, right greater than left. Small to borderline right axillary lymph nodes. Bilateral mediastinal and hilar adenopathy. There is some mass effect on the right pu lmonary artery and right pulmonary veins due to the adenopathy. The right-sided bronchi are not significantly narrowed. There is mass effect on the left atrium. Cardiac chamber sizes are otherwise normal. There is a small pericardial effusion. No evidence of right heart strain. No pulmonary arterial filling defects. There is a 3 to 3.5 cm lobulated spiculated cavitary mass with air bronchograms in the left upper lobe. A couple of spiculated nodules are present at the right apex with the larger about10 to 12 mm. The left hemidiaphragm is elevated posteriorly and there is associated atelectasis along the hemidiaphragm. Linear atelectasis in the right lower lobe there are scattered tiny nodules in the 1 to 3 mm range of size in both lungs. 6-8 mm nonsolid nodule in the right upper lobe. No pleural effusion. Splenic calcified granulomata. Renal cysts. Surgical clips at the stomach probably gastric d iversion procedure not completely imaged. Orthopedic hardware in the cervical spine. No destructive or suspicious bone lesions.An outside CT dated 11/30/2020 is obtained for comparison. The mediastinal and cervical adenopathy is similar on that examination but the soft tissue blurring around the left subclavian vein and the enlarged left axillary lymph nodes were not presentIMPRESSION:1. No pulmonary emboli.2. New left axillary/subclavian thrombophlebitis with thrombus extending into the brachiocephalic vein. There is resulting edema in the left chest wall. The enlarged nodes in the low right axilla are probably secondary to venous obstruction.3. Extensive bilateral mediastinal adenopathy and bilateral lower cervical adenopathy presumably representing tumor involvement. There is mass effect on the heart and right pulmonary artery and veins which may be reducing blood flow to that side.4. Cavitary left upper lobe mass concerning for primary lung cancer. Suspicious nodules are also seen at the right apex that could be synchronous tumor, metastases, or possibly infectious/inflammatory nodules.5. Other small lung nodules are indeterminate.MD ReganRespiratory Viral Panel + COVID-19, Nasopharyngeal [id number] 21:28:57 Test Item Value Reference Range Interpretation Comments Adenovirus (test code = Not Detected Not Detected 4748) Coronavirus 229E (test Not Detected Not Detected code = 5349) Coronavirus HKU1 (test Not Detected Not Detected code = 5350) Coronavirus NL63 (test Not Detected Not Detected code = 5351) Coronavirus OC43 (test Not Detected Not Detected code = 5352) COVID19 (SARS-CoV-2) Not Detected Not Detected (test code = 96479-4) Human Metapneumovirus Not Detected Not Detected (test code = 6401) Human Not Detected Not Detected Rhinovirus/Enterovirus (test code = 7212) Influenza A (test code Not Detected Not Detected = 5618) Influenza A H1 (test Not Detected Not Detected code = 5619) Influenza A H1 2009 Not Detected Not Detected (test code = 5620) Influenza A H3 (test Not Detected Not Detected code = 5621) Influenza B (test code Not Detected Not Detected = 5622) Parainfluenza 1 (test Not Detected Not Detected code = 6779) Parainfluenza 2 (test Not Detected Not Detected code = 6780) Parainfluenza 3 (test Not Detected Not Detected code = 6781) Parainfluenza 4 (test Not Detected Not Detected code = 6782) Respiratory Syncytial Not Detected Not Detected Virus (test code = 7157) Bordetella Not Detected Not Detected Parapertussis (test code = 13413) Bordetella pertussis Not Detected Not Detected (test code = 4854) Chlamydiophila Not Detected Not Detected pneumoniae (test code = 5139) Mycoplasma pneumoniae Not Detected Not Detected (test code = 6203) VANNESA (test code = VANNESA) The BioFire RP2.1 is a real-time, nested multiplexed polymerase chain reaction test designed to simultaneously identify nucleic acids from 22 different viruses and bacteria associated with respiratory tract infection, including SARS-CoV-2, from a single nasopharyngeal swab ([employer]) specimen. Specifically, the SARS-CoV-2 primers contained in the BioFire RP2.1 are designed to detect RNA from the SARS-CoV-2 in nasopharyngeal swabs in transport media from patients who are suspected of COVID-19 by their healthcare provider. Results must be interpreted within the context of all relevant clinical and laboratory findings and should not form the sole basis for a diagnosis or treatment decision. This assay has been approved by the FDA for use only under Emergency Use Authorization (EUA) in laboratories that have been CLIA-certified to perform moderate-complexity and high-complexity tests. The [facility] at [facility], CLIA Accreditation #[id number] and CAP Accreditation #[id number], verified the performance characteristics of this assay. [facility] performs the assay using the [employer] System. Internal controls are used to monitor all stages of the test process. MD ReganPartial Thromboplastin [id number] 20:52:32 Test Item Value Reference Range Interpretation Comments PTT (test code = 6773) 36.4 See_Comment H [Aut omated message] The system [employer] generated this result transmitted ref erence range: 24.2 - 3 6.0 second(s). The reference range was not used to int erpret this result as normal/abnormal . Lab Interpretation (test Abnormal code = 39105-1) MD ReganProthrombin Time with [id number] 20:52:31 Test Item Value Reference Range Interpretation Comments PT (test code = 6746) 14.6 See_Comment H [Auto mated message] The system [employer] generated this result transmitted ref erence range: 12.0 - 1 4.3 second(s). The reference range was not used to int erpret this result as normal/abnormal . INR (test code = 5973) 1.21 0.90-1.10 H Lab Interpretation (test Abnormal code = 43608-0) MD RegnaCardiac [id number] 20:45:15 Test Item Value Reference Range Interpretation Comments CK (test code = 5206) 35 U/L 26-192 CK MB (test code = <2.0 See_Comment [Automat ed message] The 5209) system which [employer] nerated this result tra nsmitted reference range : <=5.3 ng/mL. The refe rence range was not used to interpret this result as normal/abnormal . Troponin T (test code <6 See_Comment < 19 ng/L = 9384) Sugges t retest at [address] to rule out myocardial infarction >= 1 9 to <=52 ng/L Possible myocardial inju ry. Suggest retest at 3 hours. - a change of < 20 ng/L, retest at 6 sapna rs - a c hange of >= 20 ng/L, sugges tive of myocardial infarction > 52 ng/L Suggestive of m yocardial infarction Crit ical value will be reporte d when cTnT is > 52 ng/L an d only reported for th e first in a series. Hemol yzed specimens with Hemolysis Index >100 (100 mg/dl or moderate hemoly sis) may cause interfere nces and falsely low res ults. [Automated mess age] The system which [employer] nerated this result tra nsmitted reference range : <=18 ng/L. The refer ence range was not used to interpret this result as normal/abnormal . MD ReganNT-Pro BNP (In-House)2020-12-13 20:43:04 Test Item Value Reference Range Interpretation Comments NT ProBNP (test code = 232 pg/mL See_Comment H [Aut omated message] 0425) The system [employer] generated this result transmit alexandra reference range : <=125. The refe rence range was not u sed to interpret th is result as normal/abnormal . Lab Interpretation (test Abnormal code = 73784-7) MD ReganUS Arm Venous Doppler [id number] 20:22:20Addendum by Bigg Iniguez MD on 12/14/2020 7:14 AMA typographical error is present. The vein t hrombosis vein involves the left upper extremity. Scattered small volume adenopathy is seen. 1. Long segment deep vein thrombosis, right upper extremity. 2. Dr. Augustine Moore was advised on these findings on December 13, 2020 at 1521 hours. Interface, Radiology Results In - 12/13/2020 3:24 PM CDTFUL L RESULT:Examination: US ARM VENOUS DOPPLER LEFT, 12/13/2020 3:12 PMClinical History: Shortness of breathIndication: Arm/Neck SwellingComparison: None available.Technique: Grayscale and color/spectral Doppler ultrasound of the left upper extremity veins was performed.Findings:A large segment thrombus is present involving the left subclavian vein extending to the axillary vein, basilic and brachial veins.The left internal jugular and cephalic are patent..IMPRESSION:1. Long segment deep vein thrombosis, right upper extremity.2. Dr. Augustine Moore was advised on these findings on December 13, 2020 at 1521 hours.MD Regan
[2021-02-03] MEDS ORDERED: METHYLPREDNISOLONE 125 MG INJ ONE (23:53)
[2021-02-03] MEDS ORDERED: LEVALBUTEROL 1.25 MG/3 ML NEB ONE (23:53)
[2021-02-03] MEDS ORDERED: NA CHLORIDE 0.9% 500 ML ONE (23:53)
[2021-02-03] MEDS ORDERED: MAGNESIUM SULFATE 1 gm IVPB 1 GM/100 ML BAG IV ONE (23:53)
[2021-02-03] MEDS ORDERED: dilTIAZem HCL 25 MG/5 ML VIAL IV ONE (23:54)
[2021-02-04] MEDS ORDERED: NA CHLORIDE 0.9% 1,000 ML ONE (00:10)
[2021-02-04] MEDS ORDERED: ONDANSETRON 4 MG/2 ML VIAL ONE (00:10)
[2021-02-04 00:38] LABS: Absolute Lymphocytes (CBC) 1.7 K/uL (0.7-4.9); Basophils % 0.8 % (0-1.3); Hematocrit 32.9 % (36.0-45.0); Lymphocytes % 11.5 % (15.3-44.8); MPV 11.3 fL (7.6-11.3); RBC Red Blood Cell Count 3.75 M/uL (3.86-4.86)
[2021-02-04 00:39] LABS: Protime INR 1.7
[2021-02-04 00:48] LABS: Bilirubin Direct 0.2 mg/dL (0-0.2); Bilirubin Total 0.6 mg/dL (0.2-1.0); Magnesium 2.6 mg/dL (1.8-2.4); Potassium 4.4 mmol/L (3.5-5.1); Protein, Total 7.6 g/dL (6.4-8.2); Troponin (Emerg Dept Use Only) 0.04 ng/mL (0.0-0.045)
[2021-02-04] MEDS ORDERED: NA CHLORIDE 0.9% 500 ML ONE (01:06)
[2021-02-04] MEDS ORDERED: HYDROCODONE/APAP 7.5/325 MG TAB ONE (01:45)
--- NOTE | 2021-02-04 01:46 | ER ---
Nurse's Notes [facility] Name: Lilly Watson Age: 65 yrs Sex: Female : 1955 Arrival Date: 02/03/2021 Time: 22:56 Bed 5 Private MD: Diagnosis: Malignant Pericardial Effusion;Pulmonary embolism without acute cor pulmonale;Atrial fibrillation and flutter-with RVR Presentation: 02/03 23:00 Chief complaint: Chief complaint: Patient states: she has stage IV lung cancer and bb today she started having more and more difficulty breathing. 23:00 Coronavirus screen: At this time, the client does not indicate any symptoms associated bb with coronavirus-19. Ebola Screen: No symptoms or risks identified at this time. Initial Sepsis Screen: Does the patient meet any 2 criteria? RR > 20 per min. HR > 90 bpm. Yes Does the patient have a suspected source of infection? Yes: Productive cough/pneumonia If YES to both, name of provider notified: Austin Olivares MD. Risk Assessment: Do you want to hurt yourself or someone else? Patient reports no desire to harm self or others. Onset of symptoms was February 03, 2021. 23:00 Method Of Arrival: Ambulatory bb 23:00 Acuity: MARK 2 bb Triage Assessment: 23:30 Respiratory: Onset: The symptoms/episode began/occurred gradually, the patient has mild ca1 shortness of breath. Historical: - Allergies: 23:21 No Known Allergies; bb - PMHx: 23:21 stage IV lung cancer; bb - Immunization history:: Adult Immunizations up to date. - Social history:: Smoking status: Patient/guardian denies using tobacco, but has a distant history of tobacco abuse. - Family history:: not pertinent. - Hospitalizations: : No recent hospitalization is reported. Screenin:00 Abuse screen: Denies threats or abuse. Denies injuries from another. Nutritional ca1 screening: No deficits noted. Tuberculosis screening: No symptoms or risk factors identified. Fall Risk None identified. Assessment: 23:15 General: Appears distressed, Behavior is calm, cooperative. Pain: Denies pain. Neuro: ca1 Level of Consciousness is awake, alert, obeys commands, Oriented to person, place, time, situation, Appropriate for age. Cardiovascular: Reports lightheadedness, nausea, palpitations, Heart tones S1 S2 Rhythm is atrial fibrillation with rapid ventricular response. Respiratory: Reports shortness of breath cough that is Airway is patent Respiratory effort is even, labored, Respiratory pattern is tachypnea Breath sounds are diminished bilaterally. GI: Abdomen is flat, non-distended. : No signs and/or symptoms were reported regarding the genitourinary system. EENT: No signs and/or symptoms were reported regarding the EENT system. Derm: Skin is intact, is healthy with good turgor, Skin is pink, warm \T\ dry. normal. Musculoskeletal: Circulation, motion, and sensation intact. 02/04 00:35 Reassessment: Patient appears in no apparent distress at this time. No changes from ca1 previously documented assessment. Patient and/or family updated on plan of care and expected duration. Pain level reassessed. Patient is alert, oriented x 3, equal unlabored respirations, skin warm/dry/pink. 02:00 Reassessment: Patient appears in no apparent distress at this time. Patient and/or jb4 family updated on plan of care and expected duration. Pain level reassessed. Patient is alert, oriented x 3, equal unlabored respirations, skin warm/dry/pink. Report taken from DENA Ashley. 03:00 Reassessment: Patient appears in no apparent distress at this time. Patient and/or jb4 family updated on plan of care and expected duration. Pain level reassessed. Patient is alert, oriented x 3, equal unlabored respirations, skin warm/dry/pink. 03:35 Reassessment: Patient appears in no apparent distress at this time. Patient and/or jb4 family updated on plan of care and expected duration. Pain level reassessed. Patient is alert, oriented x 3, equal unlabored respirations, skin warm/dry/pink. 04:36 Reassessment: Patient appears in no apparent distress at this time. Patient and/or jb4 family updated on plan of care and expected duration. Pain level reassessed. Patient is alert, oriented x 3, equal unlabored respirations, skin warm/dry/pink. Report given to [facility], pt transferred to receiving facility, remains on 2L NC, IV remains clean dry and intact and patent. Vital Signs: 02/03 23:00 BP 112 / 63; Pulse 160; Resp 33 S; Temp 97.6(O); Pulse Ox 86% on R/A; Weight 58.97 kg bb (R); Height 5 ft. 9 in. (175.26 cm) (R); Pain 3/10; 23:30 BP 78 / 56; Pulse 103; Resp 24; Pulse Ox 95% on 2 lpm NC; ca1 23:45 BP 73 / 56; Pulse 143; Resp 21; Pulse Ox 98% on 2 lpm NC; ca1 02/04 00:00 BP 82 / 60; Pulse 125; Resp 23; Pulse Ox 98% on 2 lpm NC; ca1 00:15 BP 82 / 55; Pulse 81; Resp 22; Pulse Ox 98% on 2 lpm NC; wh 00:30 BP 100 / 45; Pulse 87; Resp 22; Pulse Ox 98% on 2 lpm NC; wh 02:00 BP 98 / 67; Pulse 93; Resp 19; Pulse Ox 100% on 2 lpm NC; jb4 02:30 BP 100 / 62; Pulse 94; Resp 17; Pulse Ox 98% on 2 lpm NC; jb4 03:00 BP 96 / 53; Pulse 95; Resp 15; Pulse Ox 97% on 2 lpm NC; jb4 03:35 BP 96 / 62; Pulse 93; Resp 17; Pulse Ox 97% on 2 lpm NC; jb4 04:00 BP 101 / 66; Pulse 93; Resp 16; Pulse Ox 97% 2 lpm ; jb4 02/03 23:00 Body Mass Index 19.20 (58.97 kg, 175.26 cm) ED Course: 02/03 22:56 Patient arrived in ED. bp1 23:00 Austin Olivares MD is Attending Physician. rn 23:14 EKG completed in triage. Results shown to . bb 23:21 Triage completed. bb 23:21 Arm band placed on Patient placed in an exam room, on a stretcher, on oxygen, on bb conveyor monitor, on pulse oximetry. 23:30 Patient has correct armband on for positive identification. Placed in gown. Bed in low ca1 position. Call light in reach. Side rails up X 1. athletic monitor on. Pulse ox on. NIBP on. 23:30 Inserted saline lock: 20 gauge in right antecubital area, using aseptic technique. ca1 Blood collected. 23:39 XRAY CXR (1 view) In Process Unspecified. EDMS 02/04 00:23 Monica Parker, DENA is Primary Nurse. ca1 01:44 Russell Olivares MD is Hospitalizing Provider. rn 03:00 initiated a transfer with Edita from [facility]. mw2 03:28 administrative approval given by Edita/ patient has been accepted to [facility] ER/ Dr. mariana Castillo accepted the patient in transfer/ report to be called to [phone]. 04:37 No provider procedures requiring assistance completed. Patient transferred, IV remains jb4 in place. Administered Medications: 02/03 23:48 Drug: SOLU-Medrol (methylPrednisoLONE) 125 mg Route: IVP; Site: right antecubital; ca1 02/04 00:40 Follow up: Response: No adverse reaction ca1 02/03 23:50 Drug: Diltiazem 20 mg Route: IVP; Site: right antecubital; ca1 02/04 00:40 Follow up: Response: No adverse reaction ca1 02/03 23:52 Drug: NS 0.9% 1000 ml Route: IV; Rate: 1000 ml; Site: right antecubital; ca1 02/04 00:40 Follow up: Response: No adverse reaction; IV Status: Completed infusion ca1 02/03 23:54 Drug: Magnesium Sulfate 1 grams Route: IVPB; Infused Over: 1 hrs; Site: right ca1 antecubital; 02/04 00:40 Follow up: Response: No adverse reaction; IV Status: Completed infusion ca1 02/03 23:56 Drug: Xopenex (levalbuterol) (3) 1.25 mg Route: Inhalation; ca1 02/04 00:40 Follow up: Response: No adverse reaction ca1 00:25 CANCELLED (Physician Discretion): NS 0.9% 500 ml IV at bolus once ca1 01:01 Drug: NS 0.9% 500 ml Route: IV; Rate: bolus; Site: right antecubital; ca1 01:26 Drug: [place] (HYDROcodone-acetaminophen) (7.5 mg-325 mg) 1 tabs Route: PO; wh 02:00 Follow up: Response: No adverse reaction; Marked relief of symptoms; Pain is decreased jb4 Outcome: 01:45 Decision to Hospitalize by Provider. rn 03:59 ER care complete, transfer ordered by rn 04:37 Transferred by ground EMS to [facility], Transfer form completed. X-rays sent jb4 w/ patient. 04:37 Condition: stable 04:37 Discharge instructions given to patient, Instructed on the need for transfer, Demonstrated understanding of instructions. 04:38 Patient left the ED. jb4 Signatures: Dispatcher [employer] EDMS Kaylen Wilks RN RN Austin Olivares MD MD rn Bryson, James, RN RN jb Gabi Tong RN RN Chelita Drummond mw2 Monica Parker RN RN [facility] bp1 Corrections: (The following items were deleted from the chart) 02/03 23:21 23:17 Chief complaint: bb 02/04 01:02 00:30 BP 100 / 45; Pulse 87bpm; Resp 22bpm; Pulse Ox 98% 2 lpm Nasal Cannula; [facility] 01:02 00:15 BP 82 / 55; Pulse 81bpm; Resp 22bpm; Pulse Ox 98% 2 lpm Nasal Cannula; [facility] 03:31 02:30 BP 100 / 62; Pulse 94bpm; Resp 17bpm; Pulse Ox 98% RA; 4 jb 03:31 02:00 BP 98 / 67; Pulse 93bpm; Resp 19bpm; Pulse Ox 100% RA; [facility] jb 03:31 03:00 BP 96 / 53; Pulse 95bpm; Resp 15bpm; Pulse Ox 97% RA; [facility] jb 03:36 03:35 BP 96 / 62; Pulse 17bpm; Resp 93bpm; Pulse Ox 97% 2 lpm Nasal Cannula; jb4 jb4
--- NOTE | 2021-02-04 01:46 | EDPHYS ---
Physician Documentation [facility] Name: Lilly Watson Age: 65 yrs Sex: Female : 1955 Arrival Date: 02/03/2021 Time: 22:56 Bed 5 Private MD: ED Physician Austin Olivares HPI: 02/03 23:35 This 65 yrs old Female presents to ER via Ambulatory with complaints of rn Breathing Difficulty, Chest Pain, Shortness Of Breath. 23:35 The patient has shortness of breath at rest, with light activity. Onset: The rn symptoms/episode began/occurred 4 day(s) ago. Duration: The symptoms are continuous. The patient's shortness of breath is aggravated by exertion, light activity. Associated signs and symptoms: Pertinent positives: chest pain, non-productive cough, dizziness, Pertinent negatives: fever, hemoptysis, loss of consciousness. Severity of symptoms: At their worst the symptoms were moderate in the emergency department the symptoms are unchanged. The patient has experienced similar episodes in the past. The patient has not recently seen a physician. Reports diagnosed with non-small cell lung cancer a few months ago, has not started treatment, is waiting for callback from doctor at [facility]. Came in tonight because of increased sob over last few days. No fever. Assoc with palpitations. Reports started on blood thinners for DVT LUE. NO hx of afib. . Historical: - Allergies: 23:21 No Known Allergies; bb - PMHx: 23:21 stage IV lung cancer; bb - Immunization history:: Adult Immunizations up to date. - Social history:: Smoking status: Patient/guardian denies using tobacco, but has a distant history of tobacco abuse. - Family history:: not pertinent. - Hospitalizations: : No recent hospitalization is reported. ROS: 23:35 Constitutional: Negative for fever, chills, + weight loss Eyes: Negative for injury, rn pain, redness, and discharge, Neck: Negative for injury, pain, and swelling, Cardiovascular: Tachycardic, irregular Respiratory: + sob and cough Abdomen/GI: Negative for abdominal pain, nausea, vomiting, diarrhea, and constipation, Back: Negative for injury and pain, MS/Extremity: Negative for injury and deformity, Skin: Negative for injury, rash, and discoloration, Neuro: Negative for headache, numbness, tingling, and seizure. 23:35 All other systems are negative. Exam: 23:35 Constitutional: This is a well developed, well nourished patient who is awake, alert, rn + moderate distress Head/Face: Normocephalic, atraumatic. ENT: dry MM Cardiovascular: Tachycardic, irregular Respiratory: + moderate tachypnea, faint wheezing bilaterally Abdomen/GI: soft, non-tender Skin: Warm, dry, no cyanosis MS/ Extremity: Pulses equal, no cyanosis. Neuro: Awake and alert, GCS 15 Vital Signs: 23:00 BP 112 / 63; Pulse 160; Resp 33 S; Temp 97.6(O); Pulse Ox 86% on R/A; Weight 58.97 kg bb (R); Height 5 ft. 9 in. (175.26 cm) (R); Pain 3/10; 23:30 BP 78 / 56; Pulse 103; Resp 24; Pulse Ox 95% on 2 lpm NC; ca1 23:45 BP 73 / 56; Pulse 143; Resp 21; Pulse Ox 98% on 2 lpm NC; ca1 02/04 00:00 BP 82 / 60; Pulse 125; Resp 23; Pulse Ox 98% on 2 lpm NC; ca1 00:15 BP 82 / 55; Pulse 81; Resp 22; Pulse Ox 98% on 2 lpm NC; wh 00:30 BP 100 / 45; Pulse 87; Resp 22; Pulse Ox 98% on 2 lpm NC; wh 02:00 BP 98 / 67; Pulse 93; Resp 19; Pulse Ox 100% on 2 lpm NC; jb4 02:30 BP 100 / 62; Pulse 94; Resp 17; Pulse Ox 98% on 2 lpm NC; jb4 03:00 BP 96 / 53; Pulse 95; Resp 15; Pulse Ox 97% on 2 lpm NC; jb4 03:35 BP 96 / 62; Pulse 93; Resp 17; Pulse Ox 97% on 2 lpm NC; jb4 04:00 BP 101 / 66; Pulse 93; Resp 16; Pulse Ox 97% 2 lpm ; jb4 02/03 23:00 Body Mass Index 19.20 (58.97 kg, 175.26 cm) bb MDM: 02/03 23:00 Patient medically screened. rn 23:57 ED course: Pt became acutely diaphoretic, borderline hypotensive, placed supine and rn started 1L NS bolus with improvement, had transient RUE weakness when blood pressure dropped, when increased had resolution of weakness. . 02/04 00:31 ED course: Pt converted to sinus rhythm after single dose diltiazem. Feels much better. rn . 01:42 Differential diagnosis: Chronic Obstructive Pulmonary Disease Myocardial Infarction rn pneumonia, Pneumothorax pulmonary edema, Pulmonary Embolism Sepsis afib with RVR. Data reviewed: vital signs, nurses notes, lab test result(s), EKG, radiologic studies, plain films, and as a result, I will admit patient. Counseling: I had a detailed discussion with the patient and/or guardian regarding: the historical points, exam findings, and any diagnostic results supporting the discharge/admit diagnosis, lab results, radiology results, the need for further work-up and treatment in the hospital. Response to treatment: the patient's symptoms have markedly improved after treatment, and as a result, I will admit patient. Admission orders: after a detailed discussion of the patient's condition and case, the admit orders are written by me. ED course: Pt with advanced lung cancer, has not initiated treatment, acutely worsened symptoms likely 2/2 to new onset afib with rvr, has not converted to sinus rhythm. BP improved. Already on eliquis. Will admit to hospitalist service for further care. . 02:47 ED course: CT chest shows small subsegmental PEs on right side, + large pericardial rn effusion, and worsening of lymphadenopathy. Trying to transfer to [facility] for further care. . 02/03 23:12 Order name: Blood Culture Adult (2) rn 02/03 23:12 Order name: BMP; Complete Time: 00:57 02/03 23:12 Order name: CBC with Diff; Complete Time: 00:45 02/03 23:12 Order name: Hepatic Function; Complete Time: 00:57 02/03 23:12 Order name: Magnesium; Complete Time: 00:57 02/03 23:12 Order name: NT PRO-BNP; Complete Time: 00:57 02/03 23:12 Order name: PT-INR; Complete Time: 00:45 02/03 23:12 Order name: Ptt, Activated; Complete Time: 00:45 02/03 23:12 Order name: Troponin (emerg Dept Use Only); Complete Time: 00:57 rn 02/03 23:50 Order name: Lactate; Complete Time: 00:57 bb 02/04 01:42 Order name: TSH 4 02/04 01:42 Order name: T4 Free jb4 02/04 01:43 Order name: Thyroid Stimulating Hormone; Complete Time: 03:16 EDMS 02/04 01:43 Order name: T4 Free; Complete Time: 03:16 EDHI 02/03 23:12 Order name: CT Chest For PE Angio rn 02/03 23:12 Order name: XRAY CXR (1 view) rn 02/03 23:12 Order name: EKG; Complete Time: 23:12 rn 02/04 02:08 Order name: COVID-19 : Document "Date of Symptom Onset" if Symptomatic. 2 02/04 02:17 Order name: CORONAVIRUS EDHI 02/04 03:02 Order name: SARS-COV-2 RT PCR; Complete Time: 03:16 EDHI 02/04 03:49 Order name: Lactate Sepsis 2 HR Follow-up; Complete Time: 04:04 [facility] 02/03 23:12 Order name: Cardiac monitoring; Complete Time: 00:24 rn 02/03 23:12 Order name: EKG - Nurse/Tech; Complete Time: 00:24 rn 02/03 23:12 Order name: IV Saline Lock; Complete Time: 00:24 rn 02/03 23:12 Order name: Labs collected and sent; Complete Time: 00:24 rn 02/03 23:12 Order name: O2 Per Protocol; Complete Time: 00:24 rn 02/03 23:12 Order name: O2 Sat Monitoring; Complete Time: 00:24 rn Administered Medications: 02/03 23:48 Drug: SOLU-Medrol (methylPrednisoLONE) 125 mg Route: IVP; Site: right antecubital; ca1 02/04 00:40 Follow up: Response: No adverse reaction ca1 02/03 23:50 Drug: Diltiazem 20 mg Route: IVP; Site: right antecubital; ca1 02/04 00:40 Follow up: Response: No adverse reaction ca1 02/03 23:52 Drug: NS 0.9% 1000 ml Route: IV; Rate: 1000 ml; Site: right antecubital; ca1 02/04 00:40 Follow up: Response: No adverse reaction; IV Status: Completed infusion ca1 02/03 23:54 Drug: Magnesium Sulfate 1 grams Route: IVPB; Infused Over: 1 hrs; Site: right ca1 antecubital; 02/04 00:40 Follow up: Response: No adverse reaction; IV Status: Completed infusion ca1 02/03 23:56 Drug: Xopenex (levalbuterol) (3) 1.25 mg Route: Inhalation; [facility] 02/04 00:40 Follow up: Response: No adverse reaction ca1 00:25 CANCELLED (Physician Discretion): NS 0.9% 500 ml IV at bolus once ca1 01:01 Drug: NS 0.9% 500 ml Route: IV; Rate: bolus; Site: right antecubital; [facility] 01:26 Drug: [place] (HYDROcodone-acetaminophen) (7.5 mg-325 mg) 1 tabs Route: PO; 02:00 Follow up: Response: No adverse reaction; Marked relief of symptoms; Pain is decreased jb4 Disposition: 02/04/21 03:59 Transfer ordered to Other Acute Care Facility. Diagnosis are Malignant Pericardial Effusion, Pulmonary embolism without acute cor pulmonale, Atrial fibrillation and flutter - with RVR. - Reason for transfer: Higher level of care. - Accepting physician is Dr. Castillo. - Condition is Stable. - Problem is new. - Symptoms have improved. Signatures: Dispatcher [employer] EDMS Kaylen Wilks RN RN bb Nieto, Roman, MD MD rn Attema, Lee, MOLD MAKER PLASTER-C MOLD MAKER PLASTER-Cla1 Phu Griffith RN RN jb4 Gabi Tong RN RN Monica Parker RN RN ca1 Corrections: (The following items were deleted from the chart) 00:25 02/03 23:14 NS 0.9% 500 ml IV at bolus once ordered. rn ca1 02/04 02:47 01:45 Hospitalization Ordered by Russell Olivares MD for Inpatient Admission. Preliminary rn diagnosis is Paroxysmal atrial fibrillation - with RVR; Lung cancer; Dyspnea, unspecified. Bed requested for Telemetry/MedSurg (Inpatient). Status is Inpatient Admission. Condition is Stable. Problem is new. Symptoms have improved. rn 04:38 03:59 02/04/2021 03:59 Transfer ordered to Other Acute Care Facility. Diagnosis is jb4 Malignant Pericardial Effusion; Pulmonary embolism without acute cor pulmonale; Atrial fibrillation and flutter - with RVR. Reason for transfer: Higher level of care. Accepting physician is Dr. Castillo. Condition is Stable. Problem is new. Symptoms have improved. rn
[2021-02-04 02:09] LABS: Thyroid Stimulating Hormone 2.63 uIU/mL (0.360-3.740)
[2021-02-04] MEDS ORDERED: ONDANSETRON 4 MG/2 ML VIAL IV PRN (03:10)
[2021-02-04] MEDS ORDERED: ACETAMINOPHEN 500 MG TAB PO PRN (03:10)
[2021-02-04] MEDS ORDERED: HYDROCODONE/APAP 7.5/325 MG TAB PO PRN (03:10)
[2021-02-04 04:45] VITALS: TEMP 97.6
[2021-02-04 05:00] VITALS: O2SAT 97
[2021-02-04 05:03] VITALS: BP 101/66
[2021-02-04] MEDS ORDERED: METOPROLOL TAR 25 MG TAB PO SCH (06:00)
--- NOTE | 2021-02-04 08:23 | RAD REPORT ---
EXAM DESCRIPTION: RAD - Chest Single View - 02/03/2021 11:40 pm CLINICAL HISTORY: known metastatic lung cancer;Dyspnea Chest pain. COMPARISON: No comparisons FINDINGS: Portable technique limits examination quality. Haziness with small pleural effusion is present in the right base suspicious for pneumonia. The heart is moderately enlarged in size. No displaced fractures.Aortic atherosclerosis.
[2021-02-04] MEDS ORDERED: APIXABAN 5 MG TABLET PO SCH (09:00)
--- NOTE | 2021-02-04 09:04 | RAD REPORT ---
EXAM DESCRIPTION: ADDENDUM #1 THIS REPORT CONTAINS FINDINGS THAT MAY BE CRITICAL TO PATIENT CARE: The findings were communicated via telephone conference with Dr. Olivares on 02/04/2021 2:32 AM CDT. The results were acknowledged and understood. Electronically signed by: Jose M So MD 02/04/2021 2:32 AM CDT End of Addendum EXAM DESCRIPTION: CTA Chest, Pulmonary Embolus Protocol COMPARISON: None. CLINICAL HISTORY: [facility] MAIN DYSPNEA TECHNIQUE: CT images through the chest with IV contrast using the pulmonary embolus protocol. Multip lanar reformats. Automated exposure control was utilized on this examination as a dose lowering chela hnique. FINDINGS: Pulmonary arteries and vascular: Diagnostic quality bolus. There are several small filling defects within the right subsegmental anterior and lateral basal branches. Heart and mediastinum: Heart size is normal. There is a large pericardial effusion measuring up to 3. 2 cm in thickness. There are numerous enlarged mediastinal and bilateral hilar lymph nodes. The large st discrete lymph node measures 1.7 cm short axis on series 401 image 27. Ill-defined masslike adenop athy is present of the right hilum measuring approximately 5.3 cm x 2.5 cm and in the subcarinal ambrocio on measuring 2.7 x 3.3 cm. Multiple bilateral supraclavicular and left chest wall and left axillary l ymph nodes are also increased in number and size. Thyroid gland: Visualized portions are normal. Lungs: There is a cavitating and spiculated lesion of the left upper lobe on series 401 image 20 winnie uring 2.7 cm. There is a spiculated lesion of the right upper lobe measuring 1.2 cm on series 4 one i mage 12. Adjacent scarring is present. Airways: No filling defects. No bronchiectasis. There is narrowing of bronchioles in the right hilum. Pleura: No pneumothorax. There is a moderate right pleural effusion. Subphrenic structures: Ascites is present. There are surgical changes at the GE junction. Musculoskeletal and soft tissues: Within normal limits for age. IMPRESSION: 1. There are several small right-sided subsegmental pulmonary emboli. 2. There is a large pericardial effusion or hematoma. The density is intermediate and favors simple fluid or malignant effusion rather than blood products. 3. Bilateral hilar, mediastinal, left chest wall, supraclavicular, left axillary adenopathy. The grea test masslike burden of tissue is in the right hilum and subcarinal regions with narrowing of bronchi oles. There is also a 2.7 cm cavitary spiculated lesion of the left upper lobe and a spiculated small er lesion of the right upper lobe. Overall, this is favored to represent pulmonary malignancy with no sheron metastases. 4. Moderate right pleural effusion and ascites. Electronically signed by: Jose M So MD 02/04/2021 2:21 AM CDT Due to temporary technical issues with the PACS/Fluency reporting system, reports are being signed by the in house radiologist without review as a courtesy to ensure prompt reporting. The interpreting r adiologist is fully responsible for the content of the report.
== END 2021-02-04 04:38 | disposition short-term general hospital (02) ==
LOC: ER 22:54 → ERHOLD 02-04 01:47
PROVIDERS: ADMIT Hospitalist; ATTEND Hospitalist
DX: I26.99 Other pulmonary embolism without acute cor pulmonale (principal); I31.3 Pericardial effusion (noninflammatory); C79.89 Secondary malignant neoplasm of other specified sites; Z20.822 Contact with and (suspected) exposure to COVID-19; R94.31 Abnormal electrocardiogram [ECG] [EKG]; C34.90 Malignant neoplasm of unspecified part of unspecified bronchus or lung
CPT/HCPCS: 96365; 93005 ×2; 87040 ×2; 85025; 80048; 36415 ×2; 83735; 85610; 80076; 83605 ×2; 85730; 84443; 84484; 84439; 83880; 71275; 71045; 96375; 99285; U0003; Q9967; J3475; J7040 ×2; J2930; G0378 ×2